=== PATIENT | female | born 1965 | race Native Hawaiian/Other Pacific Islander ===

== ENCOUNTER 2020-04-01 14:42 | Outpatient (CLI) | payer OTHER ==
[2020-04-01 15:02] LABS: PLATELET COUNT 176 K/uL (152-353)
== END 2020-04-01 23:56 | disposition home or self-care (01) ==
LOC: LAB 14:42
PROVIDERS: Nurse Practitioner Family
DX: R53.83 Other fatigue (principal); R06.09 Other forms of dyspnea; R00.2 Palpitations
CPT/HCPCS: 82306; 82607; 82746; 84443; 85027

== ENCOUNTER 2020-05-26 16:07 | Outpatient (CLI) | payer OTHER | END 2020-05-26 22:31 | disposition home or self-care (01) | LOC: US 16:07 | DX: J02.9 Acute pharyngitis, unspecified (principal); R49.0 Dysphonia ==

== ENCOUNTER 2020-06-19 15:36 | Outpatient (CLI) | payer OTHER | END 2020-06-19 22:08 | disposition home or self-care (01) | LOC: CT 15:36 | DX: R05 Cough (principal); R91.1 Solitary pulmonary nodule; Z86.19 Personal history of other infectious and parasitic diseases ==

== ENCOUNTER 2021-01-29 21:38 | Outpatient (CLI) | payer OTHER | END 2021-01-29 22:26 | disposition home or self-care (01) | LOC: LAB 21:38 | PROVIDERS: ATTEND Nurse Practitioner Family | DX: Z00.00 Encounter for general adult medical examination without abnormal findings (principal); N95.1 Menopausal and female climacteric states; R53.82 Chronic fatigue, unspecified; R53.81 Other malaise; Z86.16 Personal history of COVID-19 | CPT/HCPCS: 82627; 82670; 83001; 83002; 84144; 84402; 84403; 84439; 84481; 84482; 86376; 86769 ==

== ENCOUNTER 2021-02-04 18:10 | Outpatient (CLI) | payer OTHER | END 2021-02-04 21:36 | disposition home or self-care (01) | LOC: LAB 18:10 | PROVIDERS: ATTEND Nurse Practitioner Family | DX: Z00.00 Encounter for general adult medical examination without abnormal findings (principal); N95.1 Menopausal and female climacteric states; R53.82 Chronic fatigue, unspecified; R53.81 Other malaise | CPT/HCPCS: 82627; 82670; 84144; 84402; 84403; 84481; 84482; 86376 ==

== ENCOUNTER 2021-02-19 16:02 | Outpatient (CLI) | payer OTHER | END 2021-02-19 20:42 | disposition home or self-care (01) | LOC: US 16:02 | PROVIDERS: ATTEND Nurse Practitioner Family | DX: M79.89 Other specified soft tissue disorders (principal) ==

== ENCOUNTER 2021-05-14 15:14 | Outpatient (CLI) | payer OTHER ==
[2021-05-14 15:43] LABS: PLATELET COUNT 226 K/uL (152-353)
[2021-05-14 15:55] LABS: POTASSIUM 4.2 mmol/L (3.6-5.2)
== END 2021-05-14 21:09 | disposition home or self-care (01) ==
LOC: LAB 15:14
PROVIDERS: ATTEND Nurse Practitioner Family
DX: R53.82 Chronic fatigue, unspecified (principal); E66.9 Obesity, unspecified; E03.9 Hypothyroidism, unspecified; E55.9 Vitamin D deficiency, unspecified; N95.1 Menopausal and female climacteric states; Z79.890 Hormone replacement therapy; Z13.0 Encounter for screening for diseases of the blood and blood-forming organs and certain disorders involving the immune mechanism; R10.9 Unspecified abdominal pain; Z13.228 Encounter for screening for other metabolic disorders
CPT/HCPCS: 80053; 80061; 82306; 83036; 85027; 87070; 87205